=== PATIENT | male | born 1975 | race Two or more races ===

== ENCOUNTER 2016-08-17 06:14 | Emergency (ER) | payer OTHER ==
[~2016-08-17] VITALS: Ht 177.8 cm; Wt 73.9 kg
[2016-08-17 06:24] VITALS: BP 124/76
[2016-08-17] MEDS ORDERED: COMPLERA TABLE1 EACH ORAL (06:27)
[2016-08-17] MEDS ORDERED: IBUPROFEN600 MG ORAL (06:31)
[2016-08-17 06:36] VITALS: BP 124/76
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
== END 2016-08-17 06:36 ==
LOC: EMR 06:25
DX: Z02.89 Encounter for other administrative examinations (principal); S00.83XA Contusion of other part of head, initial encounter; Y04.0XXA Assault by unarmed brawl or fight, initial encounter; Y92.9 Unspecified place or not applicable; Y99.8 Other external cause status
CPT/HCPCS: 99282